=== PATIENT | female | born 1940 | race Caucasian/White ===

== ENCOUNTER 2017-01-06 12:28 | Observation (INO) | payer BC, MEDICARE ==
[~2017-01-06] VITALS: Ht 167.6 cm; Wt 65.8 kg
[2017-01-06 12:30] VITALS: BP 131/74
--- NOTE | 2017-01-06 12:31 | Emergency Room Report ---
History of Present Illness General Chief Complaint: Generalized Weakness Source: Patient, EMS Present Illness HPI Patient is a 76-year-old female sent in by nursing facility for increased generalized weakness as well as hypotension. Patient had prior history dementia and stays in a dementia facility at [facility]. Patient was noted to have increased generalized weakness as well as low blood pressure. Patient had not been noted to have any vomiting or diarrhea. Patient was followed by Vivien Lambert and is noted to be full code. Allergies: Coded Allergies: No Known Allergies (Unverified , 01/06/17) Patient History Past Medical History: see triage record Reviewed Nursing Documentation: PMH: Agreed, PSxH: Agreed Review of Systems All Other Systems: negative except mentioned in HPI Physical Exam Vital Signs Date Time Temp Pulse Resp B/P Pulse Ox O2 Delivery O2 Flow Rate FiO2 01/06/17 12:21 98.6 84 14 95/42 99 Room Air Sp02 EP Interpretation: reviewed, normal General Appearance: normal inspection, well appearing, no apparent distress, alert Head: atraumatic ENT: normal ENT inspection, hearing grossly normal, normal voice Neck: normal inspection, full range of motion, supple, no bony tend Respiratory: normal inspection, lungs clear, normal breath sounds, no respiratory distress, no retraction, no wheezing Cardiovascular #1: regular rate, rhythm, no edema Gastrointestinal: normal inspection, normal bowel sounds, non tender, soft, no guarding, no hernia Genitourinary: no CVA tenderness Musculoskeletal: normal inspection, back normal, normal range of motion Neurologic: normal inspection, alert, responsive, speech normal Psychiatric: normal inspection, judgement/insight normal, mood/affect normal Skin: normal inspection, normal color, no rash Medical Decision Making Diagnostic Impression: Primary Impression: Episode of generalized weakness Additional Impressions: Hypotensive episode ACS (acute coronary syndrome) ER Course Patient presented for generalized weakness and hypotension. The differential diagnosis included was not limited to sepsis, ACS, dehydration, arrhythmia among others.Because of complexity of patient's case laboratory testing and imaging studies were ordered. I laboratory studies are essentially unremarkable. I EKG interpreted by me showed normal sinus rhythm with nonspecific ST changes inferiorly. Patient was given aspirin. The patient was discussed with Dr. Jarrod Anguiano for inpatient observation. Labs Test 01/06/17 12:40 01/06/17 13:54 White Blood Count 5.1 K/UL (4.8-10.8) Red Blood Count 3.98 M/UL (4.20-5.40) Hemoglobin 12.4 G/DL (12.0-16.0) Hematocrit 36.8 % (37.0-47.0) Mean Corpuscular Volume 93 FL (80-99) Mean Corpuscular Hemoglobin 31.2 PG (27.0-31.0) Mean Corpuscular Hemoglobin Concent 33.7 G/DL (32.0-36.0) Red Cell Distribution Width 11.9 % (11.6-14.8) Platelet Count 126 K/UL (150-450) Mean Platelet Volume 7.4 FL (6.5-10.1) Neutrophils (%) (Auto) 59.1 % (45.0-75.0) Lymphocytes (%) (Auto) 30.0 % (20.0-45.0) Monocytes (%) (Auto) 8.6 % (1.0-10.0) Eosinophils (%) (Auto) 1.2 % (0.0-3.0) Basophils (%) (Auto) 1.1 % (0.0-2.0) Prothrombin Time 11.0 SEC (9.30-11.50) Prothromb Time International Ratio 1.1 (0.9-1.1) Activated Partial Thromboplast Time 27 SEC (23-33) Sodium Level 139 mEQ/L (135-145) Potassium Level 4.6 mEQ/L (3.4-4.9) Chloride Level 102 mEQ/L (98-107) Carbon Dioxide Level 27 mEQ/L (20-30) Anion Gap 10 (5-15) Blood Urea Nitrogen 19 mg/dL (7-23) Creatinine 0.7 mg/dL (0.5-0.9) Estimat Glomerular Filtration Rate mL/min (>60) Glucose Level 90 mg/dL (74-106) Lactic Acid Level 1.00 mmol/L (0.66-2.22) Calcium Level 9.4 mg/dL (8.6-10.2) Total Bilirubin 0.3 mg/dL (0.0-1.2) Aspartate Amino Transf (AST/SGOT) 22 U/L (5-40) Alanine Aminotransferase (ALT/SGPT) 16 U/L (3-33) Alkaline Phosphatase 78 U/L (35-104) Total Creatine Kinase 51 U/L (26-140) Creatine Kinase MB 1.8 ng/mL (< 3.8) Creatine Kinase MB Relative Index 3.5 Troponin I < 0.30 ng/mL (<=0.30) Pro-B-Type Natriuretic Peptide 152 pg/mL (0-450) Total Protein 6.6 g/dL (6.6-8.7) Albumin 3.9 g/dL (3.5-5.2) Globulin 2.7 g/dL Albumin/Globulin Ratio 1.4 (1.0-2.7) Lipase 40 U/L (< 60) Urine Color Pale yellow Urine Appearance Clear Urine pH 6.5 (4.5-8.0) Urine Specific [place] 1.005 (1.005-1.035) Urine Protein Negative (NEGATIVE) Urine Glucose (UA) Negative (NEGATIVE) Urine Ketones Negative (NEGATIVE) Urine Occult Blood Negative (NEGATIVE) Urine Nitrite Negative (NEGATIVE) Urine Bilirubin Negative (NEGATIVE) Urine Urobilinogen Normal MG/DL (0.0-1.0) Urine Leukocyte Esterase 2+ (NEGATIVE) Urine RBC 0 /HPF (0 - 2) Urine WBC 2-4 /HPF (0 - 2) Urine Squamous Epithelial Cells Few /LPF (NONE/OCC) Urine Bacteria None /HPF (NONE) EKG Diagnostic Results Rate: normal Rhythm: NSR - 73 ST Segments: no acute changes Rhythm Strip Diag. Results EP Interpretation: yes Rhythm: NSR, no PVC's, no ectopy Chest X-Ray Diagnostic Results Chest X-Ray Diagnostic Results : Chest X-Ray Ordered: Yes # of Views/Limited/Complete: 1 View Indication: Chest Pain EP Interpretation: Yes Interpretation: no consolidation, no effusion, no pneumothorax, no acute cardiopulmonary disease Impression: No acute disease Interpreting ER Provider: Electronically signed by Dr. Tony Day M.D. Last Vital Signs Date Time Temp Pulse Resp B/P Pulse Ox O2 Delivery O2 Flow Rate FiO2 01/06/17 12:21 98.6 84 14 95/42 99 Room Air Status: improved Disposition: PLACE IN OBSERVATION Condition: Tony Mitchell Jan 06, 2017 12:31
[2017-01-06 13:17] LABS: BASOPHILS % (AUTO) 1.1 % (0.0-2.0); EOSINOPHILS % (AUTO) 1.2 % (0.0-3.0); MEAN CORPUSCULAR HEMOGLOBIN 31.2 PG (27.0-31.0); MEAN CORPUSCULAR HGB CONC 33.7 G/DL (32.0-36.0); MEAN CORPUSCULAR VOLUME 93 FL (80-99); MEAN PLATELET VOLUME 7.4 FL (6.5-10.1); MONOCYTES % (AUTO) 8.6 % (1.0-10.0); NEUTROPHILS % (AUTO) 59.1 % (45.0-75.0); PLATELET COUNT 126 K/UL (150-450); RED BLOOD COUNT 3.98 M/UL (4.20-5.40); RED CELL DISTRIBUTION WIDTH 11.9 % (11.6-14.8); WHITE BLOOD COUNT 5.1 K/UL (4.8-10.8)
[2017-01-06 13:24] LABS: INR 1.1 (0.9-1.1)
[2017-01-06 13:28] LABS: TROPONIN I < 0.30 ng/mL (<=0.30)
[2017-01-06 13:29] LABS: ALANINE AMINOTRANSFERASE 16 U/L (3-33); ALBUMIN/GLOBULIN RATIO 1.4 (1.0-2.7); ANION GAP 10 (5-15); ASPARTATE AMINO TRANSFERASE 22 U/L (5-40); CALCIUM 9.4 mg/dL (8.6-10.2); CARBON DIOXIDE 27 mEQ/L (20-30); CHLORIDE 102 mEQ/L (98-107); CREATININE 0.7 mg/dL (0.5-0.9); HEMOLYSIS 59; LIPASE 40 U/L (< 60); POTASSIUM 4.6 mEQ/L (3.4-4.9); SODIUM 139 mEQ/L (135-145); TOTAL PROTEIN 6.6 g/dL (6.6-8.7)
[2017-01-06 13:39] LABS: CKMB 1.8 ng/mL (< 3.8)
[2017-01-06 14:00] LABS: APPEARANCE,URINE CLEAR; KETONES,URINE NEGATIVE (NEGATIVE); LEUKOCYTE ESTERASE ,URINE 2+ (NEGATIVE); NITRITE,URINE NEGATIVE (NEGATIVE); PH,URINE 6.5 (4.5-8.0); PROTEIN,URINE NEGATIVE (NEGATIVE); UROBILINOGEN,URINE NORMAL MG/DL (0.0-1.0)
[2017-01-06] MEDS ORDERED: D5 1/2NS 1000ml IV ONE (14:16)
[2017-01-06 14:30] VITALS: BP 141/69
[2017-01-06 14:45] LABS: RBC,URINE 0 /HPF (0 - 2); SQUAMOUS EPITHELIAL CELL,UR FEW /LPF (NONE/OCC)
[2017-01-06] MEDS ORDERED: VITAMIN B-122000 MC1 PO (15:11)
[2017-01-06] MEDS ORDERED: XANAX0.5 MG ORAL (15:11)
[2017-01-06] MEDS ORDERED: DOCUSATE SODIU100 MG ORAL (15:11)
[2017-01-06] MEDS ORDERED: FLUOXETINE HCL40 MG ORAL (15:11)
[2017-01-06] MEDS ORDERED: TRAZODONE HCL150 MG ORAL (15:11)
[2017-01-06] MEDS ORDERED: SIMVASTATIN20 MG ORAL (15:11)
[2017-01-06] MEDS ORDERED: NAMENDA5 MG ORAL (15:11)
[2017-01-06] MEDS ORDERED: VITAMIN D400 INTLU ORAL (15:11)
--- NOTE | 2017-01-06 16:13 | History & Physical ---
History and Physical History & Physicial # [id number] NILTON ZHANG Jan 06, 2017 16:13
[2017-01-06] MEDS ORDERED: ALPRAZolam 0.5mg tab ORAL PRN (16:15)
[2017-01-06 16:30] VITALS: BP 146/63
[2017-01-06] MEDS ORDERED: cefTRIAXone 1 GM in NS 55 ML IVPB ONE (18:00)
--- NOTE | 2017-01-06 18:30 | History and Physical Report ---
DATE OF ADMISSION: 01/06/2017 HISTORY OF PRESENT ILLNESS: The patient is seen in the ER. She is a 76-year-old female, who was sent by paramedics for generalized weakness. On evaluation in the emergency room, the patient was initially hypotensive. Past history of the patient, history of dementia. The patient lives in [facility]. The patient is not a historian. No history of chest pain, shortness of breath, vomiting, or diarrhea. MEDICATIONS: The patient's list of medication includes Prozac, Namenda, vitamin B12, Zocor, Xanax, stool softener, trazodone, and vitamin D. The patient is Full Code. PHYSICAL EXAMINATION: GENERAL: The patient has low cognition, open eyes, verbalizes, but does not make sense. VITAL SIGNS: At this time, the initial blood pressure of 95/42 has improved to 141/69, temperature of 98.4 degrees, pulse rate 84, respiratory rate 16, and pulse oximetry is 97%. HEENT: Head is normocephalic. Sclerae not icteric. Tongue is dry. NECK: Rigid to both directions. LUNGS: No wheezes, no rhonchi, and no rales. HEART: Regular. Rate 80. ABDOMEN: Soft. EXTREMITIES: Lower extremities, no edema. CENTRAL NERVOUS SYSTEM: The patient moves all extremities. LABORATORY DATA: Hemoglobin 12.4 and white blood cells 5.1. CMP normal. Initial troponin normal. Coags normal. Urine, 2+ leukocyte esterase and 4 white blood cells. EKG, minimal anterior changes. IMPRESSION: 1. Generalized weakness, presents with hypotension and encephalopathy. 2. History of dementia. 3. History of psychiatric disorder. PLAN: At this point, the patient will be kept on observation, will be hydrated, and will be put on cardiac diet. Another troponin and EKG will be checked tomorrow. We will continue on stool softener and trazodone. We will give aspirin. We will hydrate and according to how the patient's condition evolves, we will make the proper changes in our future management. Jarrod Anguiano M.D. DR: GLADYS JOB#: [id number] CC:
[2017-01-06 18:43] VITALS: BP 144/64
[2017-01-06] MEDS: D5 1/2NS 1,000 ML IV SCH (18:45)
[2017-01-06 19:56] VITALS: BP 146/77
[2017-01-06 20:30] VITALS: BP 141/74
[2017-01-06] MEDS: Heparin 5000 units/ml inj SUBQ SCH (21:00)
[2017-01-06] MEDS ORDERED: TraZODone 100mg tab ORAL SCH (21:00)
[2017-01-06] MEDS: Docusate 100mg cap ORAL SCH (21:27)
[2017-01-07] VITALS: BP 147/78
[2017-01-07 04:00] VITALS: BP 119/69
[2017-01-07] MEDS: D5 1/2NS 1,000 ML IV SCH (07:12)
[2017-01-07 07:36] LABS: BASOPHILS % (AUTO) 1.2 % (0.0-2.0); LYMPHOCYTES % (AUTO) 24.5 % (20.0-45.0); MEAN CORPUSCULAR HEMOGLOBIN 30.8 PG (27.0-31.0); MEAN CORPUSCULAR HGB CONC 32.4 G/DL (32.0-36.0); MEAN CORPUSCULAR VOLUME 95 FL (80-99); MEAN PLATELET VOLUME 7.9 FL (6.5-10.1); MONOCYTES % (AUTO) 9.3 % (1.0-10.0); NEUTROPHILS % (AUTO) 62.9 % (45.0-75.0); PLATELET COUNT 142 K/UL (150-450); RED BLOOD COUNT 4.26 M/UL (4.20-5.40); RED CELL DISTRIBUTION WIDTH 11.8 % (11.6-14.8); WHITE BLOOD COUNT 5.2 K/UL (4.8-10.8)
[2017-01-07 07:54] LABS: ALANINE AMINOTRANSFERASE 16 U/L (3-33); ALBUMIN/GLOBULIN RATIO 1.2 (1.0-2.7); ANION GAP 10 (5-15); ASPARTATE AMINO TRANSFERASE 19 U/L (5-40); CALCIUM 9.3 mg/dL (8.6-10.2); CARBON DIOXIDE 28 mEQ/L (20-30); CHLORIDE 104 mEQ/L (98-107); CHOLESTEROL 155 mg/dL (< 200); CHOLESTEROL/HDL RATIO 2.3 (3.3-4.4); CREATININE 0.8 mg/dL (0.5-0.9); CRP QUANT 0.9 mg/dL (< 0.5); HEMOLYSIS 4; LDL CHOLESTEROL (CALC.) 71 mg/dL (60-99); MAGNESIUM 1.7 mg/dL (1.7-2.5); POTASSIUM 3.9 mEQ/L (3.4-4.9); SODIUM 142 mEQ/L (135-145); TOTAL PROTEIN 6.6 g/dL (6.6-8.7); URIC ACID 4.6 mg/dL (3.0-7.5)
[2017-01-07 08:00] VITALS: BP 126/66
[2017-01-07 08:06] LABS: HEMOGLOBIN A1C 5.1 % (< 6.0)
[2017-01-07] MEDS ORDERED: Vitamin D 1000 IU Tab ORAL SCH (09:00)
[2017-01-07] MEDS: Heparin 5000 units/ml inj SUBQ SCH (09:44)
[2017-01-07] MEDS: Docusate 100mg cap ORAL SCH (09:46)
--- NOTE | 2017-01-07 10:57 | Diagnostic Imaging Report ---
Indication: Shortness of breath Technique: XRAY CHEST 1 V Comparison: None Findings: Cardiomediastinal silhouette is within normal limits. Atherosclerotic changes are seen. There is no consolidation or pleural effusion. Degenerative changes of the spine are present. There is osteopenia. Impression: No acute cardiopulmonary disease.
[2017-01-07] MEDS ORDERED: ACETAMINOPHEN325 M1 ORAL (11:16)
[2017-01-07] MEDS ORDERED: PROTONIX40 MG ORAL (11:16)
--- NOTE | 2017-01-07 11:17 | Discharge Instructions ---
Discharge Instructions Discharge Instructions Follow up with: follow up with PMD Activity: as tolerated, other Special Instructions fall percautions- Stop psych meds IF patient lethargic For Congestive Heart Failure Reminder Report to your physician any weight gain of 5 pounds or more in one week. NILTON ZHANG Jan 07, 2017 11:17
--- NOTE | 2017-01-07 11:22 | General Progress Note ---
Assessment/Plan Status: stable Assessment/Plan # [id number] Subjective Date patient seen: Jan 07, 2017 Time patient seen: 11:20 ROS Limited/Unobtainable: No Allergies: Coded Allergies: No Known Allergies (Unverified , 01/06/17) Objective Last 24 Hour Vital Signs Date Time Temp Pulse Resp B/P Pulse Ox O2 Delivery O2 Flow Rate FiO2 01/07/17 08:00 69 01/07/17 08:00 97.7 72 20 126/66 96 Room Air 01/07/17 04:00 97.4 71 18 119/69 92 Room Air 01/07/17 04:00 62 01/07/17 00:00 74 01/07/17 00:00 97.3 73 18 147/78 98 Room Air 01/06/17 20:30 98.3 67 13 146/77 100 Room Air 01/06/17 20:30 97.2 68 18 141/74 95 Room Air 01/06/17 19:56 98.3 67 13 146/77 100 Room Air 01/06/17 18:43 98.3 69 13 144/64 100 Room Air 01/06/17 16:30 98.0 65 14 146/63 97 Room Air 01/06/17 14:30 98.4 84 15 141/69 97 Room Air 01/06/17 12:30 98.2 76 15 131/74 98 Room Air 01/06/17 12:21 98.6 84 14 95/42 99 Room Air Intake and Output 01/06/17 01/07/17 19:00 07:00 Intake Total 1055 ml 825 ml Balance 1055 ml 825 ml Intake Oral 0 ml IV Total 1055 ml 825 ml # Voids 2 Laboratory Tests 01/06/17 12:40: White Blood Count 5.1, Red Blood Count 3.98L, Hemoglobin 12.4, Hematocrit 36.8L , Mean Corpuscular Volume 93, Mean Corpuscular Hemoglobin 31.2H, Mean Corpuscular Hemoglobin Concent 33.7, Red Cell Distribution Width 11.9, Platelet Count 126L, Mean Platelet Volume 7.4, Neutrophils (%) (Auto) 59.1, Lymphocytes ( %) (Auto) 30.0, Monocytes (%) (Auto) 8.6, Eosinophils (%) (Auto) 1.2, Basophils (%) (Auto) 1.1, Prothrombin Time 11.0, Prothromb Time International Ratio 1.1, Activated Partial Thromboplast Time 27, Sodium Level 139, Potassium Level 4.6, Chloride Level 102, Carbon Dioxide Level 27, Anion Gap 10, Blood Urea Nitrogen 19, Creatinine 0.7, Estimat Glomerular Filtration Rate , Glucose Level 90, Lactic Acid Level 1.00, Calcium Level 9.4, Total Bilirubin 0.3, Aspartate Amino Transf (AST/SGOT) 22, Alanine Aminotransferase (ALT/SGPT) 16, Alkaline Phosphatase 78, Total Creatine Kinase 51, Creatine Kinase MB 1.8, Creatine Kinase MB Relative Index 3.5, Troponin I < 0.30, Pro-B-Type Natriuretic Peptide 152, Total Protein 6.6, Albumin 3.9, Globulin 2.7, Albumin/Globulin Ratio 1.4, Lipase 40 01/06/17 13:54: Urine Color Pale yellow, Urine Appearance Clear, Urine pH 6.5, Urine Specific [place] 1.005, Urine Protein Negative, Urine Glucose (UA) Negative, Urine Ketones Negative, Urine Occult Blood Negative, Urine Nitrite Negative, Urine Bilirubin Negative, Urine Urobilinogen Normal, Urine Leukocyte Esterase 2+H, Urine RBC 0, Urine WBC 2-4, Urine Squamous Epithelial Cells Few, Urine Bacteria None 01/07/17 06:50: White Blood Count 5.2, Red Blood Count 4.26, Hemoglobin 13.1, Hematocrit 40.5, Mean Corpuscular Volume 95, Mean Corpuscular Hemoglobin 30.8, Mean Corpuscular Hemoglobin Concent 32.4, Red Cell Distribution Width 11.8, Platelet Count 142L, Mean Platelet Volume 7.9, Neutrophils (%) (Auto) 62.9, Lymphocytes (%) (Auto) 24.5, Monocytes (%) (Auto) 9.3, Eosinophils (%) (Auto) 2.0, Basophils (%) (Auto ) 1.2, Sodium Level 142, Potassium Level 3.9, Chloride Level 104, Carbon Dioxide Level 28, Anion Gap 10, Blood Urea Nitrogen 12, Creatinine 0.8, Estimat Glomerular Filtration Rate , Glucose Level 101, Calcium Level 9.3, Total Bilirubin 0.4, Aspartate Amino Transf (AST/SGOT) 19, Alanine Aminotransferase ( ALT/SGPT) 16, Alkaline Phosphatase 82, Total Creatine Kinase 65, Pro-B-Type Natriuretic Peptide 255, Total Protein 6.6, Albumin 3.7, Globulin 2.9, Albumin/ Globulin Ratio 1.2, Hemoglobin A1c 5.1, Uric Acid 4.6, Phosphorus Level 4.0, Magnesium Level 1.7, C-Reactive Protein, Quantitative 0.9H, Triglycerides Level 80, Cholesterol Level 155, LDL Cholesterol 71, HDL Cholesterol 68H, Cholesterol/ HDL Ratio 2.3L, Vitamin B12 Level 1139H, Folate [Pending], Thyroid Stimulating Hormone (TSH) 1.810 Height (Feet): 5 Height (Inches): 6.00 Weight (Pounds): 145 General Appearance: no apparent distress Objective no change NILTON ZHANG Jan 07, 2017 11:22
[2017-01-07 12:00] VITALS: BP 109/63
--- NOTE | 2017-01-08 06:00 | Discharge Summary ---
DATE OF ADMISSION: 01/06/2017 DATE OF DISCHARGE: 01/07/2017 HOSPITAL COURSE: The patient was admitted yesterday, was put on observation, and is being discharged back today. She is a 76-year-old, came in with weakness, low blood pressure, and the patient has history of dementia. Her medication is a series of psych medications. During the initial evaluation in the ER and after observation, the patient's blood pressure stabilized. Mental status somewhat improved, appears to be her baseline. At this point, the patient will be discharged back to where she came from home to be followed with her PMD. Her vital signs are okay and blood pressure has been stabilized. She is in normal sinus rhythm, rate of 72. MEDICATIONS ON DISCHARGE: Tylenol and Protonix are added to her other medications, which are B12, stool softener, Prozac, Namenda, Zocor, trazodone, and vitamin D. FINAL DIAGNOSES: 1. Hypotension. 2. Generalized weakness. 3. Encephalopathy. 4. Organic brain syndrome. Jarrod Anguiano M.D. DR: Toy JOB#: [id number] CC:
--- NOTE | 2017-01-10 17:10 | Cardiology Report ---
APPROVED REPORT EKG Measurement Heart [id number] Normal sinus rhythm Possible Left atrial enlargement Borderline ECG
== END 2017-01-07 16:00 ==
LOC: EDBD 12:28 → EMR 13:18 → 2E 14:15 → EDBEDREQ 14:23 → 2E 21:00
DX: R53.1 Weakness (principal); I95.9 Hypotension, unspecified; G93.40 Encephalopathy, unspecified; F09 Unspecified mental disorder due to known physiological condition; F03.90 Unspecified dementia, unspecified severity, without behavioral disturbance, psychotic disturbance, mood disturbance, and anxiety; Z79.899 Other long term (current) drug therapy
CPT/HCPCS: 36415 ×2; 71010; 80053 ×2; 80061; 81003; 82550 ×2; 82553; 82607; 82746; 83036; 83605; 83690; 83735; 83880 ×2; 84100; 84443; 84484; 84550; 85025 ×2; 85610; 85730; 86140; 87040; 87081 ×2; 87086; 87181; 93005; 96360; 96361; 97110; 97116; 97162; 97530; 99285; C8957; G0378 ×2; J0696